=== PATIENT | female | born 1955 | race Caucasian/White ===

== ENCOUNTER 2016-11-28 20:07 | Emergency (ER) | payer MEDICAID, OTHER ==
[~2016-11-28] VITALS: Ht 167.6 cm; Wt 63.5 kg
[~2016-11-28 20:07] MED LIST: DOES NOT RECALL MEDS
[2016-11-28 20:15] VITALS: BP 139/96
== END 2016-11-28 21:35 | disposition home or self-care (01) ==
LOC: ER 20:11
DX: J30.9 Allergic rhinitis, unspecified (principal); R05 Cough; K21.9 Gastro-esophageal reflux disease without esophagitis; G89.29 Other chronic pain; I10 Essential (primary) hypertension; E11.9 Type 2 diabetes mellitus without complications; F41.9 Anxiety disorder, unspecified; Z88.6 Allergy status to analgesic agent; Z98.890 Other specified postprocedural states
CPT/HCPCS: 82962; 99283; A4606; Z7610